=== PATIENT | female | born 1950 | race Caucasian/White ===

== ENCOUNTER 2017-03-13 17:42 | Emergency (ER) | payer MEDICARE, OTHER ==
[2017-03-13 17:49] VITALS: BP 161/72; PULSE 68; RESP 18; TEMP 98.2
[2017-03-13] MEDS ORDERED: HYDROcodone/APAP 5-325MG 1 EACH TAB PO STA (18:15)
--- NOTE | 2017-03-13 18:20 | ED ---
Lower Extremity Injury HPI - General Chief Complaint: Extremity Injury, Lower Stated Complaint: toe laceration Time Seen by Provider: 03/13/17 18:11 Source: patient Mode of arrival: wheelchair Limitations: no limitations - History of Present Illness Initial Comments: 66-year-old female patient presented to emergency department today for evaluation of right great toe injury. Patient states that she was walking into her home carrying some stuff in her hands, states she tripped on the door jam injuring the toe. Patient states when she looked at it she noticed there was bleeding coming from the wound on the bottom. Patient states that the entire toe is throbbing. She was wearing flip-flops. She denies any foot or ankle pain. She denies any fall from tripping. Patient denies any headache, neck pain , back pain, chest pain, shortness of breath, dizziness, weakness, abdominal pain, nausea, vomiting, or difficulties with bowel movements or urination. - Related Data Previous Rx's Medication Instructions Recorded Acetaminophen-Codeine 300-30mg 1 tab PO Q6H PRN #15 tablet 03/13/17 [Tylenol #3] Cephalexin [Keflex] 500 mg PO QID #28 cap 03/13/17 Allergies Allergy/AdvReac Type Severity Reaction Status Date / Time aspirin Allergy Rash/Hives Verified 03/13/17 17:49 Sulfa (Sulfonamide Allergy Rash/Hives Verified 03/13/17 17:49 Antibiotics) Review of Systems ROS Statement: Those systems with pertinent positive or pertinent negative responses have been documented in the HPI. ROS Other: All systems not noted in ROS Statement are negative. Past Medical History Past Medical History: Diabetes Mellitus, Hyperlipidemia, Hypertension Additional Past Medical History / Comment(s): glaucoma History of Any Multi-Drug Resistant Organisms: None Reported Past Surgical History: Section, Hysterectomy, Orthopedic Surgery Additional Past Surgical History / Comment(s): abdominal plasty, bilateral feet , x3 shoulder surgeries, eye surgery Past Psychological History: No Psychological Hx Reported Smoking Status: Never smoker Past Alcohol Use History: Occasional Past Drug Use History: None Reported General Exam Limitations: no limitations General appearance: alert, in no apparent distress Head exam: Present: atraumatic, normocephalic, normal inspection Respiratory exam: Present: normal lung sounds bilaterally. Absent: respiratory distress, wheezes, rales, rhonchi, stridor Cardiovascular Exam: Present: regular rate, normal rhythm, normal heart sounds. Absent: systolic murmur, diastolic murmur, rubs, gallop, clicks Extremities exam: Present: full ROM, tenderness (Over the right first MC joint. Flap-like laceration noted to the plantar surface of the right great toe. Skin is pink, warm, and dry. Cap refill less than 3 seconds.), normal capillary refill. Absent: normal inspection, pedal edema, joint swelling, calf tenderness Neurological exam: Present: alert, oriented X3, CN II-XII intact Psychiatric exam: Present: normal affect, normal mood Skin exam: Present: warm, dry, intact, normal color. Absent: rash Course Vital Signs 03/13/17 17:45 Temperature 98.2 F Pulse Rate 68 Respiratory 18 Rate Blood Pressure 161/72 O2 Sat by Pulse 97 Oximetry Medical Decision Making - Medical Decision Making 66-year-old female patient presented for evaluation of left great toe injury. X -ray was obtained and showed no acute fracture nor dislocation. Laceration to the plantar surface of the great toe was repaired after cleansing and irrigation. Patient will be discharged home with a prescription for Keflex for infection prophylaxis. She'll be given a ortho shoe for support. Tetanus vaccine updated. Instructed to return for suture removal in 10 days. Instructed to follow-up with primary care physician for recheck in 1-2 days. Instructed to follow up for repeat x-ray if still having pain in 7-10 days. Instructed to return here for any new, worsening, or concerning symptoms. Patient verbalizes understanding and agrees with this plan. - Radiology Data Radiology results: report reviewed, image reviewed Three-view x-ray of the left great toe shows no fracture nor dislocation. Joint spaces are fairly normal. Impression by Dr. Castellanos shows negative left big toe exam. Minimal laceration affirmed in the medial aspect at the IP joint. Disposition Clinical Impression: Laceration of great toe, left Disposition: HOME SELF-CARE Condition: Good Instructions: Care For Your Stitches (ED), Laceration (ED) Additional Instructions: Keep area clean and dry. Do not submerse and any type of water. Wash twice daily with warm water and antibacterial soap. Keep covered if out of the house or walking around. Leave open to air if resting. Complete for antibiotic prescription. Follow-up with primary care physician for recheck in 1-2 days. Return here to have stitches taken out in 10 days. Return immediately for any new, worsening, or concerning symptoms. Prescriptions: Acetaminophen-Codeine 300-30mg [Tylenol #3] 1 tab PO Q6H PRN #15 tablet PRN Reason: Pain Cephalexin [Keflex] 500 mg PO QID #28 cap Referrals: Nonstaff,Physician [Primary Care Provider] - 1-2 days Time of Disposition: 19:44
--- NOTE | 2017-03-13 18:51 | XR ---
EXAMINATION TYPE: XR toes LT DATE OF EXAM: 03/13/2017 COMPARISON: NONE HISTORY: Laceration TECHNIQUE: 3 views FINDINGS: I see no fracture nor dislocation. Joint spaces are fairly normal. IMPRESSION: Negative left big toe exam. Minimal laceration deformity on the medial aspect at the IP j oint..
[2017-03-13] MEDS ORDERED: DIPH,PERTUS(ACELL)TETVAC-LF 0.5 ML VIAL IM ONE (20:03)
--- NOTE | 2017-03-15 09:28 | PCN ---
Documentation Clarification OP Dear Saravanan Dias Please do addendum to ED report for missing Laceration note Thank you, Leny Malone Meat Cooler If you have any questions, please contact Gin Clerk at [phone] [facility]
== END 2017-03-13 20:43 | disposition home or self-care (01) ==
LOC: EDSEX 17:42 → EC 17:42
DX: S91.112A Laceration without foreign body of left great toe without damage to nail, initial encounter (principal); Z23 Encounter for immunization; Z88.2 Allergy status to sulfonamides; Z88.6 Allergy status to analgesic agent; W22.8XXA Striking against or struck by other objects, initial encounter; Y92.009 Unspecified place in unspecified non-institutional (private) residence as the place of occurrence of the external cause
CPT/HCPCS: 12002; 90471; 90715; 99283